=== PATIENT | male | born 1995 | race Caucasian/White ===

== ENCOUNTER 2018-11-18 10:21 | Emergency (ER) | payer MEDICAID ==
[2018-11-18] MEDS ORDERED: DEXAMETHASONE 10 MG/ML 1 ML INJ IM (12:30)
[2018-11-18] MEDS: KETOROLAC 60 MG INJ IM (13:37)
== END 2018-11-18 14:04 | disposition home or self-care (01) ==
LOC: FTE 10:21
DX: S83.101A Unspecified subluxation of right knee, initial encounter (principal); M25.461 Effusion, right knee; W18.39XA Other fall on same level, initial encounter; Y92.9 Unspecified place or not applicable
CPT/HCPCS: 29505; 73562; 96372; 99284-25